=== PATIENT | female | born 1945 | race Caucasian/White ===

== ENCOUNTER 2017-11-29 09:04 | Outpatient (CLI) | payer MEDICARE, OTHER | END 2017-11-29 09:05 | disposition home or self-care (01) | LOC: BICMAMMO 09:04 | PROVIDERS: ATTEND Obstetrics & Gynecology | DX: Z12.31 Encounter for screening mammogram for malignant neoplasm of breast (principal) | CPT/HCPCS: 77063; 77067 ==

== ENCOUNTER 2018-07-31 14:08 | Outpatient (CLI) | payer MEDICARE, OTHER ==
--- NOTE | 2018-07-31 14:39 | BD ---
"PRELIMINARY REPORT" DEXA scan: INDICATION: Osteoporosis screening diagnosis code N95.9; history of bilateral hip replacement. FINDINGS: Distal left forearm: Distal one-third ulnar and radius bone mineral density was 0.391 with a T score -0.94, Z score of 0.7 . The mid one-third measures 0.51 with a T score -1.6, Z score is 0.6. The proximal one third bone mineral density was 0.609 T score -1.4, Z score 0.8 L1 0825 T score -1.5 Z score 0.4 L2 0.784 T score - 2.2 Z score -0.4 L3 0.723 T score -3.3 Z score -1.0 L4 0.820 T score -2.2 Z score 0.1 L1-L4 region 0.788 T score -2.4 Z score -0.2 IMPRESSION: Based on WHO criteria, the patient's bone mineral density is osteopenia. The patient is a moderate r isk for fracture. Transcribed Date/Time: 07/31/2018 6:15 PM
== END 2018-07-31 14:09 | disposition home or self-care (01) ==
LOC: BICMAMMO 14:08
PROVIDERS: ATTEND Obstetrics & Gynecology
DX: Z13.820 Encounter for screening for osteoporosis (principal); N95.9 Unspecified menopausal and perimenopausal disorder; M85.89 Other specified disorders of bone density and structure, multiple sites
CPT/HCPCS: 77080

== ENCOUNTER 2019-05-31 20:30 | Outpatient (CLI) | payer MEDICARE, OTHER | END 2019-05-31 20:31 | disposition home or self-care (01) | LOC: SLEEPLAB 20:30 | PROVIDERS: ATTEND Internal Medicine | DX: G47.33 Obstructive sleep apnea (adult) (pediatric) (principal); I10 Essential (primary) hypertension; K21.9 Gastro-esophageal reflux disease without esophagitis; G47.00 Insomnia, unspecified; M19.90 Unspecified osteoarthritis, unspecified site; G47.10 Hypersomnia, unspecified; G47.61 Periodic limb movement disorder | CPT/HCPCS: 95810 ==

== ENCOUNTER 2019-09-02 19:30 | Outpatient (CLI) | payer MEDICARE, OTHER | END 2019-09-02 19:31 | disposition home or self-care (01) | LOC: SLEEPLAB 19:30 | PROVIDERS: ATTEND Internal Medicine | DX: G47.33 Obstructive sleep apnea (adult) (pediatric) (principal); R06.83 Snoring; G47.10 Hypersomnia, unspecified; K21.9 Gastro-esophageal reflux disease without esophagitis; I10 Essential (primary) hypertension; E66.9 Obesity, unspecified; Z68.32 Body mass index [BMI] 32.0-32.9, adult | CPT/HCPCS: 95811 ==

== ENCOUNTER 2019-10-04 20:21 | Inpatient (IN) | payer MEDICARE ==
[2019-10-04 23:39] VITALS: BMI 32.5
[2019-10-04] MEDS ORDERED: Acetaminophen 650 MG Suppository PR PRN (23:49)
--- NOTE | 2019-10-05 00:09 | PDOC.HHP ---
Hospitalist HPI - History of Present Illness SOB and cough History of Present Illness: Patient presented to the ED at [facility] with complaints of shortness of breath and a persistent cough. She had received a call today regarding COVID testing results that came back positive. Patient states she has been feeling generally unwell, with 3 days of fever 2 weeks ago and a persistent cough productive for clear sputum. She had been seen in the ER and started on Azithromycin which she feels has contributed to loose stools she has been having recently. Reports stools or soft but not watery. She is having 2-3 a day. No blood in her stools. No improvement in her symptoms overall noted, per patient, since starting antibiotics. Today after getting her test results she reports noting increasing shortness of breath which prompted her to seek medical attention. She had noted her sats were in the 80s when she checked it at home. ED Course: Patient recommended transfer here for further management and pulmonary review. She had a chest xray done showing worsening bibasilar interstitial and airspace opacities suspicious for worsening pneumonia. Given steroids prior to transfer here. Hospitalist ROS - Review of Systems Constitutional: reports: malaise Eyes: denies: pain, vision change, conjunctivae inflammation, eyelid inflammation, redness, other ENT: denies: ear pain, ear discharge, nose pain, nose discharge, nose congestion , mouth pain, mouth swelling, throat pain, throat swelling, other Respiratory: reports: cough, sputum (clear). denies: dry, shortness of breath, hemoptysis, SOB with excertion, pleuritic pain, wheezing, other Cardiovascular: denies: chest pain, palpitations, orthopnea, paroxysmal noc. dyspnea, edema, light headedness, other Gastrointestinal: reports: diarrhea. denies: nausea, vomiting, abdominal pain, constipation, melena, hematochezia, other Genitourinary: denies: dysuria, frequency, incontinence, hematuria, retention, other Musculoskeletal: denies: neck pain, shoulder pain, arm pain, back pain, hand pain, leg pain, foot pain, other Skin: denies: rash, lesions, arron, bruising, other Neurological: denies: weakness, numbness, incoordination, change in speech, confusion, seizures, other Hospitalist History - Past Medical History Cardiac: reports: HTN, Other (Known LBBB) Pulmonary: reports: Other (Sleep apnea) Gastrointestinal: reports: Other (Hiatal hernia) Musculoskeletal: reports: Osteoarthritis ENT: reports: Other (glaucoma) Endocrine: reports: Hypothyroidism - Past Surgical History Past Surgical History: reports: , Other (Heel surgery) Other Surgical History: Septoplasty Shoulder impingement/spur surgery Colonoscopy in 1999 EGD and colonscopy in 2016. - Family History Family History: reports: cardiac disorder (in her father.), diabetes mellitus ( Mother), hypertension (Mother) - Social History Smoking Status: Never smoker Alcohol: reports: None Drugs: reports: none Living Situation: With Family Activity level: independent ambulation - Exam General Appearance: NAD, awake alert Eye: PERRL, anicteric sclera ENT: normocephalic atraumatic, moist mucosa Neck: supple, no lymphadenopathy Heart: RRR, no murmur, no gallops, no rubs, normal peripheral pulses Respiratory: CTAB, no wheezes, no rales, no ronchi, normal chest expansion, no tachypnea Gastrointestinal: soft, non-tender, non-distended, normal bowel sounds, no guarding, no rigidity Extremities: no edema Skin: normal turgor, no lesions, no rashes Neurological: cranial nerve grossly intact, normal sensation to touch, no weakness Musculoskeletal: normal tone, normal strength, no muscle wasting Psychiatric: normal affect, normal behavior, A&O x 3 Hospitalist H&P A/P - Problem (1) Cough productive of clear sputum Code(s): R05 - COUGH Status: Acute (2) Shortness of breath Code(s): R06.02 - SHORTNESS OF BREATH Status: Acute (3) Pneumonia due to COVID-19 virus Code(s): U07.1 - COVID-19; J12.89 - OTHER VIRAL PNEUMONIA Status: Acute (4) Hypokalemia Code(s): E87.6 - HYPOKALEMIA Status: Acute (5) Diarrhea Code(s): R19.7 - DIARRHEA, UNSPECIFIED Status: Acute (6) Hyperlipidemia Code(s): E78.5 - HYPERLIPIDEMIA, UNSPECIFIED Status: Chronic (7) Hypertension Code(s): I10 - ESSENTIAL (PRIMARY) HYPERTENSION Status: Chronic - Plan Plan: IV antibiotics for COVID related pneumonia. Monitor O2 sats. Pulmonary consult ordered as per discussion with Dr. George. Au for cough. Monitor BP. Reconcile home medications once verified. Monitor electrolytes and replace as needed. GI Prophylaxis with famotidine. DVT prophylaxis with mechanical SCDs. CODE STATUS FULL Surrogate decision maker is her : Ki López. PCP: Dr. Familia Young.
[2019-10-05] MEDS ORDERED: Benzonatate 100 MG CAP PO PRN (00:10)
[2019-10-05] MEDS ORDERED: guaiFENesin 200 MG TAB PO PRN (00:10)
[2019-10-05] MEDS ORDERED: Potassium Chloride 20 MEQ TAB PO SCH (00:15)
[2019-10-05] MEDS ORDERED: cefTRIAXone\\ROCEPHIN 1 GM in Sodium Chloride 0.9% 100 ML IVPB SCH (00:30)
[2019-10-05] MEDS ORDERED: Azithromycin 500 MG in Sodium Chloride 0.9% 250 ML 250 ML IVPB SCH (01:00)
[2019-10-05 06:02] LABS: #Lymphocytes 0.9 thou/uL (1.20-3.40); #Monocytes 0.1 thou/uL (0.11-0.59); #Neutrophils 2.7 thou/uL (1.40-6.50); %Basophils 0.5 % (0.0-1.0); %Eosinophils 0.2 % (0.0-10.0); %Lymphocytes 23.5 % (21.0-51.0); %Monocytes 3.8 % (0.0-10.0); Hemoglobin 13.7 g/dL (12.0-16.0); Mean Corpuscular HGB CONC 32.6 g/dL (32.0-36.0); Mean Corpuscular Hemoglobin 30.6 pg (27.0-31.0); Mean Corpuscular Volume 93.9 fL (78.0-98.0); Mean Platelet Volume 6.8 fL (7.4-10.4); Platelet Count 196 thou/uL (130-400); RBC Distribution Width 12.1 % (11.5-14.5); Red Blood Cell (RBC) Count 4.47 mill/uL (4.20-5.40); White Blood Cell (WBC) Count 3.7 thou/uL (4.8-10.8)
[2019-10-05 06:27] LABS: Anion Gap 14 mmol/L (10-20); BUN (Urea Nitrogen) 16 mg/dL (9.8-20.1); Calc. Creatinine Clearance 88 mL/min (70-130); Calcium 9.2 mg/dL (7.8-10.44); Carbon Dioxide 21 mmol/L (23-31); Chloride 108 mmol/L (98-107); Estimated GFR-MDRD 70; Glucose 200 mg/dL (83-110); Magnesium 2.2 mg/dL (1.6-2.6); Potassium 4.6 mmol/L (3.5-5.1); Sodium 138 mmol/L (136-145)
[2019-10-05 09:02] LABS: ALT (SGPT) 15 U/L (8-55); AST (SGOT) 16 U/L (5-34); Albumin 3.8 g/dL (3.4-4.8); Alkaline Phosphatase 53 U/L (40-110); Bilirubin, Direct 0.2 mg/dL (0.1-0.3); Bilirubin, Total 0.3 mg/dL (0.2-1.2); CRP (Inflammatory) 7.27 mg/dL (= or < 0.5); Protein, Total 7.6 g/dL (6.0-8.3)
[2019-10-05] MEDS: Dexamethasone 4 mg/ml Vial SLOW IVP SCH (11:07)
[2019-10-05] MEDS: Enoxaparin Sodium 40 MG/0.4 ML SYRINGE SC SCH ×2 (11:08→19:42)
[2019-10-05] MEDS: Famotidine 20 MG TAB PO SCH ×3 (11:10→19:42)
--- NOTE | 2019-10-05 14:15 | PDOC.HOSPP ---
- Subjective Encounter Date: 10/05/19 Encounter Time: 11:20 Subjective: pt seen and she appears resting well, denies any SOB ro CP or TAN. 93%w. 3 li O2. - Objective Vital Signs & Weight: Vital Signs (12 hours) Temp Pulse Resp BP Pulse Ox 10/05/19 11:44 97.7 F 87 20 151/73 H 93 L 10/05/19 09:00 98.3 F 84 20 156/87 H 92 L 10/05/19 04:13 97.7 F 72 18 147/69 H 92 L Weight Weight 195 lb 12.8 oz Result Diagrams: 10/05/19 05:22 10/05/19 05:22 Hospitalist ROS - Medication Medications: Active Medications Generic Name Dose Route Start Last Admin Trade Name Guiq PRN Reason Stop Dose Admin Dexamethasone 6 mg 10/05/19 09:00 10/05/19 11:07 Decadron SLOW IVP 6 mg DAILY FRANCISCA Administration Enoxaparin Sodium 40 mg 10/05/19 09:00 10/05/19 11:08 Lovenox SC 40 mg BID FRANCISCA Administration Famotidine 20 mg 10/05/19 09:00 10/05/19 13:13 Pepcid PO 20 mg BID FRANCISCA Administration - Exam General Appearance: NAD, awake alert Eye: PERRL ENT: normocephalic atraumatic Neck: supple Neurological: no focal deficits Psychiatric: normal affect, normal behavior, A&O x 3 Hosp A/P - Plan COVID pneumonia Hypoxic resp.failure. - her O2 status better, 94% -- no need for more IV abx - started decadron and lovenox bid - anticough -d-dimer high---2.63 ferriting and CRP --161 and 7.27 resp'ly. - as clinically better, no need for convalescent plasma infusion unless her sats worse or sxs of SOB worsening. -mostly supportiv measures for above HTN urgency - pt does not have home BP meds? -givn high BP, starting norvasc bid and hydralazine PRN.
[2019-10-05] MEDS ORDERED: hydrALAZINE 20 MG/ML VIAL SLOW IVP PRN (14:17)
[2019-10-05] MEDS: Amlodipine 5 MG TAB PO SCH (19:42)
[2019-10-06] MEDS: Acetaminophen 325 MG TAB PO PRN (05:45)
[2019-10-06] MEDS: Dexamethasone 4 mg/ml Vial SLOW IVP SCH (07:53)
[2019-10-06] MEDS: Enoxaparin Sodium 40 MG/0.4 ML SYRINGE SC SCH ×2 (07:53→21:15)
[2019-10-06] MEDS: Famotidine 20 MG TAB PO SCH ×2 (07:53→21:14)
[2019-10-06] MEDS: Amlodipine 5 MG TAB PO SCH ×2 (07:55→21:14)
--- NOTE | 2019-10-06 14:25 | PDOC.HOSPP ---
- Subjective Encounter Date: 10/06/19 Encounter Time: : Subjective: talk to the phone at length over the phone, sats good enough to wean her off the O2. 96% w.. 2 li O2, no SOB or TAN. she wants to know, whether we can check her mick C, D and Zn level one of the family member, PA working at [employer]. pt also asking whether we can provide zn etc... -- explained those are all adjuvants--decadron is the main stay she is also asking whether we can check her antibody levels, as she is on outside 'study program'. ID will likely see her today. - Objective Vital Signs & Weight: Vital Signs (12 hours) Temp Pulse Resp BP Pulse Ox 10/06/19 11:47 95 18 125/76 96 10/06/19 08:00 92 L 10/06/19 07:55 97.7 F 72 18 137/75 92 L 10/06/19 05:00 97.8 F 20 92 L Weight Weight 195 lb 12.8 oz I&O: 10/05/19 10/06/19 10/07/19 06:59 06:59 06:59 Intake Total 1600 Balance 1600 Result Diagrams: 10/05/19 05:22 10/05/19 05:22 Hospitalist ROS - Medication Medications: Active Medications Generic Name Dose Route Start Last Admin Trade Name Freq PRN Reason Stop Dose Admin Acetaminophen 650 mg 10/04/19 23:49 10/06/19 05:45 Tylenol PO 650 mg Q4H PRN Administration Headache/Fever/Mild Pain (1-3) Amlodipine Besylate 5 mg 10/05/19 21:00 10/06/19 07:55 Norvasc PO 5 mg BID FRANCISCA Administration Dexamethasone 6 mg 10/05/19 09:00 10/06/19 07:53 Decadron SLOW IVP 6 mg DAILY FRANCISCA Administration Enoxaparin Sodium 40 mg 10/05/19 09:00 10/06/19 07:53 Lovenox SC 40 mg BID FRANCISCA Administration Famotidine 20 mg 10/05/19 09:00 10/06/19 07:53 Pepcid PO 20 mg BID FRANCISCA Administration Hosp A/P - Plan COVID pneumonia Hypoxic resp.failure. - her O2 status better, 94% -- no need for more IV abx - started decadron and lovenox bid - anticough -d-dimer high---2.63 ferriting and CRP --161 and 7.27 resp'ly. - as clinically better, no need for convalescent plasma infusion unless her sats worse or sxs of SOB worsening. -mostly supportiv measures for above HTN urgency - pt does not have home BP meds? -givn high BP, starting norvasc bid and hydralazine PRN. 30th she wants to know, whether we can check her mick C, D and Zn level one of the family member, AL[employer]F working at [employer]. pt also asking whether we can provide zn etc... -- explained those are all adjuvants--decadron is the main stay she is also asking whether we can check her antibody levels, as she is on outside 'study program'. ID consulted.
--- NOTE | 2019-10-06 16:11 | CON ---
DATE OF CONSULTATION: 10/06/2019 REASON FOR CONSULTATION: COVID pneumonia. HISTORY OF PRESENT ILLNESS: A 74-year-old with history of degenerative joint disease and bilateral hip replacements, but no other chronic medical illness, who developed fever before admission. She had gone to [place] to visit some friends and did not wear a mask, so she was diagnosed with COVID pneumonia and she developed worsening shortness of breath, and ended up admitted on the . The patient is currently feeling better. She is coughing less. No chest pain. No dyspnea. Walking around without difficulty. Able to eat. No anosmia. No abdominal pain or diarrhea. No genitourinary symptoms. PAST MEDICAL HISTORY: 1. Osteoarthritis of hip with bilateral replacements. 2. Cystoscopy. 3. A number of other elective surgeries. ALLERGIES: NONE. CURRENT MEDICATIONS: 1. Decadron. 2. Lovenox. 3. Pepcid. FAMILY HISTORY: Noncontributory. SOCIAL HISTORY: Her has been tested for COVID and is home right now. She lives in [place]. Never smoker. PHYSICAL EXAMINATION: VITAL SIGNS: The temperature has been normal since admission and O2 sats started at 95, went down to 92 and now they are 96 and up to 100 now. Other vital signs are normal. GENERAL: She is comfortable at rest, breathing at 18 times a minute, 2 L nasal cannula, appears well, in no distress. HEENT: Ocular movements conjugate. SKIN: Normal. LUNGS: With a few crackles on the left side. HEART: S1 and S2. Regular rate. No S3 or S4. ABDOMEN: Soft, not distended or tender. No ascites. No bladder distention. EXTREMITIES: No joint inflammatory activity. Moves extremities equally. NEUROLOGIC: Cognitive function is perfectly fine. LABORATORY STUDIES: Chemistry with sodium 138 and creatinine 0.81. Liver profile normal. CRP 7.27. Ferritin 161. D-dimer 2.63. Chest x-ray with bilateral basilar infiltrates. ASSESSMENT: Moderate COVID-19 pneumonia with clear-cut evidence of improvement at 12 days from the beginning of illness. She is on Decadron and I do not think she needs antiviral treatment. She certainly does not qualify for remdesivir and she does not need a plasma. I predict she is going to continue to do well and she would be able to be discharged in the next few days. I have discussed the precautions to take at home usually after 10 days of illness onset and 3 days of being asymptomatic, it should be safe for her to discontinue precautions in the home setting. I also explained it is unlikely that she could acquire the illness again if her turned out to be positive. Job ID: [id number] MTDD
[2019-10-07] MEDS: Dexamethasone 4 mg/ml Vial SLOW IVP SCH (08:09)
[2019-10-07] MEDS: Enoxaparin Sodium 40 MG/0.4 ML SYRINGE SC SCH ×2 (08:09→21:47)
[2019-10-07] MEDS: Amlodipine 5 MG TAB PO SCH ×2 (08:09→21:48)
[2019-10-07] MEDS: Famotidine 20 MG TAB PO SCH ×2 (08:09→21:48)
--- NOTE | 2019-10-07 14:47 | PDOC.HOSPP ---
- Subjective Encounter Date: 10/07/19 Encounter Time: 11:40 Subjective: pt seen this morning, asked her to ambulate in dk room without O2, as her sats 96% w. 1 liter. ID followed and she does not need to check zn, cit Ca nd D level etc.. as she was asking about these y'day. - Objective Vital Signs & Weight: Vital Signs (12 hours) Temp Pulse Resp BP BP Pulse Ox 10/07/19 08:30 97.7 F 87 18 125/68 96 10/07/19 08:09 68 10/07/19 08:00 96 10/07/19 05:00 97.7 F 68 17 137/74 97 Weight Weight 195 lb 12.8 oz I&O: 10/06/19 10/07/19 10/08/19 06:59 06:59 06:59 Intake Total 1600 1100 Balance 1600 1100 Result Diagrams: 10/05/19 05:22 10/05/19 05:22 Hospitalist ROS - Medication Medications: Active Medications Generic Name Dose Route Start Last Admin Trade Name Ronak PRN Reason Stop Dose Admin Acetaminophen 650 mg 10/04/19 23:49 10/06/19 05:45 Tylenol PO 650 mg Q4H PRN Administration Headache/Fever/Mild Pain (1-3) Amlodipine Besylate 5 mg 10/05/19 21:00 10/07/19 08:09 Norvasc PO 5 mg BID FRANCISCA Administration Dexamethasone 6 mg 10/05/19 09:00 10/07/19 08:09 Decadron SLOW IVP 6 mg DAILY FRANCISCA Administration Enoxaparin Sodium 40 mg 10/05/19 09:00 10/07/19 08:09 Lovenox SC 40 mg BID FRANCISCA Administration Famotidine 20 mg 10/05/19 09:00 10/07/19 08:09 Pepcid PO 20 mg BID FRANCISCA Administration - Exam General Appearance: NAD, awake alert Eye: PERRL ENT: normocephalic atraumatic Neck: supple Neurological: no focal deficits Hosp A/P - Plan COVID pneumonia Hypoxic resp.failure. - her O2 status better, 94% -- no need for more IV abx - started decadron and lovenox bid - anticough -d-dimer high---2.63 ferriting and CRP --161 and 7.27 resp'ly. - as clinically better, no need for convalescent plasma infusion unless her sats worse or sxs of SOB worsening. -mostly supportiv measures for above HTN urgency - pt does not have home BP meds? -givn high BP, starting norvasc bid and hydralazine PRN. 30th she wants to know, whether we can check her mick C, D and Zn level one of the family member, ALTAF working at [employer]. pt also asking whether we can provide zn etc... -- explained those are all adjuvants--decadron is the main stay she is also asking whether we can check her antibody levels, as she is on outside 'study program'. ID consulted. 1st - ambulates without O2 - fw on clinical progress - ID note reviewed - home in 1 to 2 days.
[2019-10-08] MEDS: Amlodipine 5 MG TAB PO SCH (08:18)
[2019-10-08] MEDS: Dexamethasone 4 mg/ml Vial SLOW IVP SCH (08:18)
[2019-10-08] MEDS: Famotidine 20 MG TAB PO SCH (08:18)
[2019-10-08] MEDS: Enoxaparin Sodium 40 MG/0.4 ML SYRINGE SC SCH (08:18)
[2019-10-08] MEDS: Acetaminophen 325 MG TAB PO PRN (09:22)
[2019-10-08 10:29] VITALS: TEMP 97.8
[2019-10-08 15:30] VITALS: BP 148/75
--- NOTE | 2019-10-09 15:06 | DIS ---
DATE OF ADMISSION: 10/04/2019 DATE OF DISCHARGE: 10/08/2019 DISCHARGE DIAGNOSES: 1. COVID pneumonia. 2. Hypokalemia. 3. Diarrhea, hyperlipidemia, and hypertension. CONSULTS: Infectious Disease as well as Pulmonary consult. DISCHARGE MEDICATIONS: She will resume her home medications. The new medication is Decadron 6 mg daily for 6 days to complete a 10-day course. PHYSICAL EXAMINATION: VITAL SIGNS: On the day of discharge, temperature 97.8, pulse 89, blood pressure 148/75, and saturating 93% on room air. GENERAL: The patient is alert, oriented, the last few days. She is able to stay in the room air, sats above 93%. She is also ambulating inside the room without any dyspnea on exertion or shortness of breath or pleuritic pain. The patient will be discharged home today. HOSPITAL COURSE: This is a 74-year-old female, admitted with shortness of breath and COVID pneumonia. COVID test was positive at [facility], and she is transferred to the [facility] for further care. Mainly, supportive measures adapted including Decadron. On the 4th day, it is decided that she is stable to be discharged home. The patient had several questions on further care. At one point, she was interested in checking vitamin C and zinc levels. It is not necessary to follow those things. Also, she wants to know whether she is a candidate for the plasma. Since she is clinically better, she does not require either remdesivir or convalescent plasma. This has been confirmed with Infectious Disease specialist. The patient has been given sufficient information on how to be self quarantine and when she is in public. Since her symptoms are almost resolved and she is clinically stable, she does not require any protective measures while being at home. Common sense approach including wearing mask in the public. She does not need to be tested again. There was one of her questions whether she needs to be tested. If she experienced any severe cough, chest pain or fever, requested to call primary care or visit ER. With these counseling, the patient is discharged hemodynamically in stable condition. DISCHARGE INSTRUCTION: Activity as tolerated. Regular diet. Follow up with PCP as needed. Discharge time took over 35 minutes. Job ID: [id number]
== END 2019-10-08 15:20 | disposition home or self-care (01) | DRG 177 ==
LOC: T4-A 23:33
PROVIDERS: ADMIT Family Medicine; ATTEND Family Medicine
PROC: 8E0ZXY6 Isolation (ICD-10-PCS; principal; 2019-10-04)
DX: U07.1 COVID-19 (principal); J12.89 Other viral pneumonia; J96.01 Acute respiratory failure with hypoxia; I16.0 Hypertensive urgency; I10 Essential (primary) hypertension; I44.7 Left bundle-branch block, unspecified; G47.30 Sleep apnea, unspecified; H40.9 Unspecified glaucoma; E03.9 Hypothyroidism, unspecified; E87.6 Hypokalemia; Z96.643 Presence of artificial hip joint, bilateral; Z79.899 Other long term (current) drug therapy
CPT/HCPCS: 36415; 80048; 80076; 82728; 83735; 85025; 85379; 86140; 86850; 86900; 86901; 87070; 87205; J0456; J0696; J1100; J1650; J3490; J7050

== ENCOUNTER 2019-10-19 11:36 | Emergency (ER) | payer MEDICARE | END 2019-10-19 12:18 | disposition left against medical advice (07) | LOC: ERS 11:36 | DX: Z53.21 Procedure and treatment not carried out due to patient leaving prior to being seen by health care provider (principal) ==

== ENCOUNTER 2020-05-16 09:59 | Outpatient (CLI) | payer MEDICARE, OTHER ==
[2020-05-16 20:48] LABS: SARS-CoV-2 PCR by NAA Not Detected (NotDetected)
== END 2020-05-16 10:00 | disposition home or self-care (01) ==
LOC: LABBT 09:59
PROVIDERS: ATTEND Physician Assistant Medical
DX: K21.9 Gastro-esophageal reflux disease without esophagitis (principal); R09.82 Postnasal drip; R05 Cough; Z20.822 Contact with and (suspected) exposure to COVID-19
CPT/HCPCS: U0003; U0005; 87635

== ENCOUNTER 2020-05-19 09:37 | Outpatient (CLI) | payer MEDICARE, OTHER | END 2020-05-19 09:38 | disposition home or self-care (01) | PROVIDERS: ATTEND Physician Assistant Medical | DX: R13.12 Dysphagia, oropharyngeal phase (principal); K21.9 Gastro-esophageal reflux disease without esophagitis; R13.13 Dysphagia, pharyngeal phase | CPT/HCPCS: 74230 ==

== ENCOUNTER 2021-12-13 12:39 | Outpatient (CLI) | payer MEDICARE | END 2021-12-13 12:40 | disposition home or self-care (01) | LOC: BICMAMMO 12:39 | PROVIDERS: ATTEND Obstetrics & Gynecology | DX: Z12.31 Encounter for screening mammogram for malignant neoplasm of breast (principal) | CPT/HCPCS: 77063; 77067 ==

== ENCOUNTER 2022-12-25 11:23 | Outpatient (CLI) | payer MEDICARE | END 2022-12-25 11:24 | disposition home or self-care (01) | LOC: BICMAMMO 11:23 | PROVIDERS: ATTEND Obstetrics & Gynecology | DX: Z12.31 Encounter for screening mammogram for malignant neoplasm of breast (principal) | CPT/HCPCS: 77063; 77067 ==

== ENCOUNTER 2023-12-30 08:57 | Outpatient (CLI) | payer MEDICARE | END 2023-12-30 08:58 | disposition home or self-care (01) | LOC: BICMAMMO 08:57 | PROVIDERS: ATTEND Obstetrics & Gynecology | DX: Z12.31 Encounter for screening mammogram for malignant neoplasm of breast (principal) | CPT/HCPCS: 77067 ==

== ENCOUNTER 2024-05-07 07:18 | Outpatient (CLI) | payer MEDICARE ==
[2024-05-07] MEDS ORDERED: Iopamidol 370 76% 100 ML VIAL ONE (13:39)
== END 2024-05-07 07:19 | disposition home or self-care (01) ==
LOC: BICCT 07:18
PROVIDERS: ATTEND Physician Assistant Medical
DX: R10.13 Epigastric pain (principal); R11.0 Nausea; R10.30 Lower abdominal pain, unspecified; K57.30 Diverticulosis of large intestine without perforation or abscess without bleeding
CPT/HCPCS: 36415; 74177; 82565; Q9967

== ENCOUNTER 2025-02-03 08:47 | Outpatient (CLI) | payer MEDICARE | END 2025-02-03 08:48 | disposition home or self-care (01) | LOC: SCSBT 08:47 | PROVIDERS: ATTEND Internal Medicine | DX: Z13.820 Encounter for screening for osteoporosis (principal); M81.0 Age-related osteoporosis without current pathological fracture; M85.88 Other specified disorders of bone density and structure, other site | CPT/HCPCS: 77080 ==